=== PATIENT | male | born 1950 | race Caucasian/White ===

== ENCOUNTER 2018-02-26 13:51 | Inpatient (IN) | payer MEDICAID ==
[~2018-02-26] VITALS: Ht 182.9 cm; Wt 75.3 kg
[~2018-02-26 13:51] MED LIST: AMBIEN5 MG ORAL; COLACE100 MG ORAL; DEPAKOTE ER500 MG ORAL; DULCOLAX10 MG RC; MILK OF MA400 MG/51 ORAL; MIRALAX17 G2 ORAL; NKM; RISPERDAL2 MG ORAL; TYLENOL650 MG/20. ORAL
[2018-02-26 14:02] VITALS: BP 131/74
--- NOTE | 2018-02-26 14:33 | Emergency Room Report ---
History of Present Illness General Chief Complaint: Altered Mental Status Source: Patient, Caregiver (Rafy Mcclure MD) Source: Patient (Sheng Garcia MD) Present Illness HPI 61-year-old identified male brought to ED for evaluation. Was lying on street today. Bystanders called 911. Upon arrival patient is speaking in nonsensical terms. No signs of distress. Disheveled. Denies pain. Unable to provide any additional history at this time. Patient presents with garbage bags with his belongings. No other aggravating relieving factors. No other associated symptoms (Rafy Mcclure MD) Allergies: Coded Allergies: UNABLE TO ASSESS (Unverified , 02/26/18) altered mental status Patient History Past Medical History: none Past Surgical History: none Pertinent Family History: none Social History: Denies: smoking, alcohol use, drug use Immunizations: UTD Reviewed Nursing Documentation: PMH: Agreed; PSxH: Agreed (Rafy Mcclure MD) Nursing Documentation-PMH Past Medical History Deferred: Pt Cognitively Impaired Past Medical History: Deferred (Rafy Mcclure MD) Review of Systems All Other Systems: limited (Rafy Mcclure MD) Physical Exam Vital Signs Date Time Temp Pulse Resp B/P (MAP) Pulse Ox O2 Delivery O2 Flow Rate FiO2 02/26/18 13:43 98.9 80 18 119/51 98 Room Air 99.0 Sp02 EP Interpretation: reviewed, normal General Appearance: no apparent distress, GCS 15, non-toxic, other - nonverbal Head: normocephalic Eyes: bilateral eye normal inspection, bilateral eye PERRL ENT: normal ENT inspection Neck: normal inspection Respiratory: chest non-tender, lungs clear, normal breath sounds, speaking full sentences Cardiovascular #1: regular rate, rhythm, no edema Gastrointestinal: normal bowel sounds, non tender, soft, non-distended, no guarding, no rebound Rectal: deferred Genitourinary: no CVA tenderness Musculoskeletal: normal inspection Neurologic: other - nonverbal Psychiatric: normal inspection Skin: normal inspection Lymphatic: normal inspection (Rafy Mcclure MD) Medical Decision Making Diagnostic Impression: Primary Impression: Encephalopathy acute Additional Impressions: Acute prerenal azotemia Cough in adult ER Course This patient was signed out to me. He was found naked lying in the street. He was confused and required sedation. Labs initially was unremarkable. CT scan was negative. Chest x-ray unremarkable. He was signed out to me for clinical sobriety. Initially unable to get a urine sample because he has severe phimosis. He also pulled out his condom catheter. Patient has been sleeping through the night. Occasionally I will going to see how he is doing. His mental status seemed to be improving. He does have a hacking cough but oxidation was normal. I looked through his belongings. Is neatly packed into bags area however there was no ID. Eventually patient was able to mumble his name and date of to me. He still appeared to be very weak and lethargic. Patient had to be held down for me to put an IV in attempt of catheter. He was not cooperative for me to do an LP. I will cover with antibiotics. Because he's not back to been alert and oriented and comprehensible, I will repeat labs and chest x-ray. I ordered IV fluids and antibiotics. Will admit patient for further workup and monitoring. He may need prison placement. Patient will be admitted to Dr. Orr. (Sheng Garcia MD) EKG Diagnostic Results Rate: normal Rhythm: NSR ST Segments: no acute changes ASA given to the pt in ED: No (Rafy Mcclure MD) Rhythm Strip Diag. Results EP Interpretation: yes Rhythm: NSR, no PVC's, no ectopy (Rafy Mcclure MD) Last Vital Signs Date Time Temp Pulse Resp B/P (MAP) Pulse Ox O2 Delivery O2 Flow Rate FiO2 02/26/18 14:02 99.0 92 18 131/74 99 Room Air 99.0 (Rafy Mcclure MD) Status: unchanged (Sheng Garcia MD) Disposition: ADMITTED INPATIENT Condition: Serious Rafy Mcclure MD Feb 26, 2018 14:33 Sheng Garcia MD Feb 27, 2018 05:53
[2018-02-26 14:36] LABS: HEMATOCRIT 34.5 % (42.0-52.0); HEMOGLOBIN 10.4 G/DL (14.2-18.0); MEAN CORPUSCULAR VOLUME 66 FL (80-99); PLATELET COUNT 222 K/UL (150-450); RED BLOOD COUNT 5.21 M/UL (4.70-6.10); RED CELL DISTRIBUTION WIDTH 13.3 % (11.6-14.8); WHITE BLOOD COUNT 7.9 K/UL (4.8-10.8)
[2018-02-26 14:45] LABS: ANION GAP 12 mmol/L (5-15); BLOOD UREA NITROGEN 23 mg/dL (7-18); CARBON DIOXIDE 25 MMOL/L (21-32); CHLORIDE 107 MMOL/L (98-107); SODIUM 144 MMOL/L (136-145)
[2018-02-26 14:55] LABS: ALANINE AMINOTRANSFERASE 24 U/L (12-78); ALBUMIN 3.4 G/DL (3.4-5.0); ALBUMIN/GLOBULIN RATIO 0.7 (1.0-2.7); ALKALINE PHOSPHATASE 72 U/L (46-116); ASPARTATE AMINO TRANSFERASE 30 U/L (15-37); BILIRUBIN,TOTAL 1.8 MG/DL (0.2-1.0)
[2018-02-26 14:58] LABS: BILIRUBIN,DIRECT 0.5 MG/DL (0.0-0.3)
[2018-02-26 16:08] VITALS: BP 133/71
[2018-02-26 18:10] VITALS: BP 139/76
[2018-02-26] MEDS ORDERED: Haloperidol 5mg/ml Inj IM ONE ×2 (19:00→19:45)
[2018-02-26] MEDS ORDERED: Haloperidol 5mg/ml Inj ONE (19:42)
[2018-02-26] MEDS ORDERED: LORazepam Inj 2mg/ml 1ml ONE (19:42)
[2018-02-26] MEDS ORDERED: LORazepam Inj 2mg/ml 1ml IM ONE (19:45)
[2018-02-26 22:00] VITALS: BP 130/72
[2018-02-27] VITALS (7 sets, daily range): BP systolic 123–143; BP diastolic 67–82
[2018-02-27] MEDS ORDERED: cefTRIAXone 2 GM in NS 55 ML IVPB ONE (06:00)
[2018-02-27 06:05] LABS: HEMATOCRIT 36.1 % (42.0-52.0); HEMOGLOBIN 10.7 G/DL (14.2-18.0); MEAN CORPUSCULAR VOLUME 67 FL (80-99); PLATELET COUNT 214 K/UL (150-450); RED BLOOD COUNT 5.38 M/UL (4.70-6.10); RED CELL DISTRIBUTION WIDTH 13.5 % (11.6-14.8)
[2018-02-27 06:11] LABS: ANION GAP 11 mmol/L (5-15); BLOOD UREA NITROGEN 24 mg/dL (7-18); CALCIUM 9.2 MG/DL (8.5-10.1); CARBON DIOXIDE 25 MMOL/L (21-32); CHLORIDE 107 MMOL/L (98-107); CREATININE 0.9 MG/DL (0.55-1.30); POTASSIUM 4.3 MMOL/L (3.5-5.1); SODIUM 143 MMOL/L (136-145)
--- NOTE | 2018-02-27 08:33 | History & Physical ---
History and Physical History & Physicial 61-year-old identified male brought in after he was found lying on street today. Bystanders called 911. No signs of distress. Disheveled. No other associated symptoms admitted due to ETOH and ALOC Allergies/MEDS: none noted Past Medical History: none known Past Surgical History: none known Pertinent Family History: none Social History: homeless Physical WDWN NAD clear breath sounds bilaterally without rhonchi or wheeze [id number] without MRG NABS nontender no HSM no CCE nonfocal disheveled and confused IMPRESSION acute encephalopathy ?ETOH homeless PLAN diet monitor LOC PT eval case management Sawyer Orr MD Feb 27, 2018 08:33
--- NOTE | 2018-02-27 10:10 | Diagnostic Imaging Report ---
Indication: Headache Technique: Contiguous 5 mm thick transaxial imaging of the head obtained in a Siemens Sensation [address] scanner. Soft tissue and bone windows generated. Automatic Exposure Control was utilized. Total Dose length Product (DLP): 1383.[address] Dose Index Volume (CTDIvol): 70.38 mGy Comparison: none Findings: There is moderate prominence of the ventricles, basal cisterns, and cerebral sulci consistent with atrophy. Moderate, nonspecific, white matter hypoattenuation is noted throughout the brain consistent with chronic small vessel disease. There is no midline shift, edema, acute hemorrhage, mass effect, or abnormal extra-axial fluid collections. Bones and extra osseous soft tissues are unremarkable. There is a prominent cisterna magna. Impression: No acute intracranial bleed, mass effect or edema. Moderate atrophy of the brain. Evidence of chronic small vessel disease involving white matter tracts. The CT scanner at [facility] is accredited by the [employer] and the scans are performed using dose optimization techniques as appropriate to a performed exam including Automatic Exposure control.
--- NOTE | 2018-02-27 10:12 | Diagnostic Imaging Report ---
Indication: Dyspnea Comparison: 02/26/2018 A single view chest radiograph was obtained. Findings: Cardiomediastinal appearance is within normal limits for age. The lungs are clear. Aorta is mildly ectatic. Pulmonary vascularity is appropriate. The diaphragmatic contour is smooth and costophrenic angles are sharp. No pleural effusions are identified. The bones are unremarkable. Impression: No acute findings
--- NOTE | 2018-02-27 11:05 | Diagnostic Imaging Report ---
Indication: Dyspnea Comparison: None A single view chest radiograph was obtained. Findings: No definite infiltrate or pulmonary vascular congestion identified. The heart is enlarged. The aorta is mildly enlarged consistent with atherosclerotic vascular disease. The bones are osteopenic. Impression: No acute disease
[2018-02-28] VITALS: BP 123/69
[2018-02-28 04:00] VITALS: BP 119/57
[2018-02-28 07:34] LABS: BASOPHILS % (AUTO) 0.5 % (0.0-2.0); EOSINOPHILS % (AUTO) 3.3 % (0.0-3.0); HEMATOCRIT 34.7 % (42.0-52.0); HEMOGLOBIN 10.3 G/DL (14.2-18.0); LYMPHOCYTES % (AUTO) 15.3 % (20.0-45.0); MEAN CORPUSCULAR VOLUME 67 FL (80-99); MONOCYTES % (AUTO) 5.5 % (1.0-10.0); NEUTROPHILS % (AUTO) 75.4 % (45.0-75.0); PLATELET COUNT 174 K/UL (150-450); RED BLOOD COUNT 5.15 M/UL (4.70-6.10); RED CELL DISTRIBUTION WIDTH 13.7 % (11.6-14.8); WHITE BLOOD COUNT 7.4 K/UL (4.8-10.8)
--- NOTE | 2018-02-28 07:58 | Cardiology Report ---
APPROVED REPORT EKG Measurement Heart [id number] [place] [id number] Normal sinus rhythm Prolonged QT Abnormal ECG
[2018-02-28 16:00] VITALS: BP 135/61
--- NOTE | 2018-02-28 19:47 | General Progress Note ---
Assessment/Plan Assessment/Plan IMPRESSION acute encephalopathy ETOH homeless PLAN diet monitor LOC PT eval case management for dispo Subjective Allergies: Coded Allergies: No Known Allergies (Unverified , 04/08/16) UNABLE TO ASSESS (Unverified , 02/26/18) altered mental status Subjective better more alert Objective Last 24 Hour Vital Signs Date Time Temp Pulse Resp B/P (MAP) Pulse Ox O2 Delivery O2 Flow Rate FiO2 02/28/18 16:00 97.8 65 20 135/61 (85) 99 97.8 02/28/18 08:00 Room Air 02/28/18 04:00 98.1 60 20 119/57 (77) 100 98.1 02/28/18 00:00 98.4 64 20 123/69 (87) 100 98.4 02/27/18 21:00 Room Air 02/27/18 20:00 98.0 71 20 138/67 (90) 97 98.0 Intake and Output 02/27/18 02/28/18 19:00 07:00 Intake Total 2360 ml Output Total 600 ml Balance 2360 ml -600 ml Intake Oral 360 ml IV Total 2000 ml Output Urine Total 600 ml # Voids 3 1 # Bowel Movements 1 Laboratory Tests 02/28/18 06:40: White Blood Count 7.4, Red Blood Count 5.15, Hemoglobin 10.3L, Hematocrit 34.7L , Mean Corpuscular Volume 67L, Mean Corpuscular Hemoglobin 20.0L, Mean Corpuscular Hemoglobin Concent 29.8L, Red Cell Distribution Width 13.7, Platelet Count 174, Mean Platelet Volume 6.6, Neutrophils (%) (Auto) 75.4H, Lymphocytes (%) (Auto) 15.3L, Monocytes (%) (Auto) 5.5, Eosinophils (%) (Auto) 3.3H, Basophils (%) (Auto) 0.5 Height (Feet): 6 Height (Inches): 0.00 Weight (Pounds): 200 Objective WDWN NAD clear breath sounds bilaterally without rhonchi or wheeze [id number] without MRG NABS nontender no HSM no CCE nonfocal disheveled Sawyer Orr MD Feb 28, 2018 19:47
[2018-02-28 20:00] VITALS: BP 140/65
[2018-03-01] VITALS: BP 123/82
[2018-03-01 04:00] VITALS: BP 123/69
[2018-03-01 08:00] VITALS: BP 139/77
[2018-03-01 16:00] VITALS: BP 112/77
[2018-03-01 20:00] VITALS: BP 142/70
--- NOTE | 2018-03-01 22:18 | Pulmonology Progress Note ---
Assessment/Plan Assessment/Plan Assessment/Plan IMPRESSION acute encephalopathy ETOH homeless PLAN diet monitor LOC PT eval case management for dispo DC SNF Subjective Allergies: Coded Allergies: No Known Allergies (Unverified , 04/08/16) UNABLE TO ASSESS (Unverified , 02/26/18) altered mental status Subjective better more alert Objective Last 24 Hour Vital Signs Date Time Temp Pulse Resp B/P (MAP) Pulse Ox O2 Delivery O2 Flow Rate FiO2 02/28/18 16:00 97.8 65 20 135/61 (85) 99 97.8 02/28/18 08:00 Room Air 02/28/18 04:00 98.1 60 20 119/57 (77) 100 98.1 02/28/18 00:00 98.4 64 20 123/69 (87) 100 98.4 02/27/18 21:00 Room Air 02/27/18 20:00 98.0 71 20 138/67 (90) 97 98.0 Intake and Output 02/27/18 02/28/18 19:00 07:00 Intake Total 2360 ml Output Total 600 ml Balance 2360 ml -600 ml Intake Oral 360 ml IV Total 2000 ml Output Urine Total 600 ml # Voids 3 1 # Bowel Movements 1 Laboratory Tests 02/28/18 06:40: White Blood Count 7.4, Red Blood Count 5.15, Hemoglobin 10.3L, Hematocrit 34.7L , Mean Corpuscular Volume 67L, Mean Corpuscular Hemoglobin 20.0L, Mean Corpuscular Hemoglobin Concent 29.8L, Red Cell Distribution Width 13.7, Platelet Count 174, Mean Platelet Volume 6.6, Neutrophils (%) (Auto) 75.4H, Lymphocytes (%) (Auto) 15.3L, Monocytes (%) (Auto) 5.5, Eosinophils (%) (Auto) 3.3H, Basophils (%) (Auto) 0.5 Height (Feet): 6 Height (Inches): 0.00 Weight (Pounds): 200 Objective WDWN NAD clear breath sounds bilaterally without rhonchi or wheeze [id number] without MRG NABS nontender no HSM no CCE nonfocal disheveled Subjective ROS Limited/Unobtainable: No Allergies: Coded Allergies: No Known Allergies (Unverified , 04/08/16) UNABLE TO ASSESS (Unverified , 02/26/18) altered mental status Objective Last 24 Hour Vital Signs Date Time Temp Pulse Resp B/P (MAP) Pulse Ox O2 Delivery O2 Flow Rate FiO2 03/01/18 21:00 Room Air 03/01/18 20:00 97.8 73 19 142/70 (94) 95 03/01/18 16:00 97.2 59 20 112/77 (89) 97 03/01/18 09:00 Room Air 03/01/18 08:00 97.5 56 20 139/77 (97) 98 97.5 03/01/18 04:00 97.3 54 18 123/69 (87) 98 97.3 03/01/18 00:00 96.6 52 17 123/82 (96) 98 96.6 Intake and Output 02/28/18 03/01/18 19:00 07:00 Intake Total 360 ml Output Total 600 ml 200 ml Balance -240 ml -200 ml Intake Oral 360 ml Output Urine Total 600 ml 200 ml # Voids 1 Current Medications Medications (Trade) Dose Ordered Sig/Vitaly Route PRN Reason Start Time Stop Time Status Last Admin Dose Admin Clotrimazole (Lotrimin) 1 applic BID TOPIC 03/01/18 18:00 03/31/18 17:59 03/01/18 18:32 Silver Sulfadiazine (Silvadene Cream 25gm) 1 applic TWICE A DAY TOPIC 02/28/18 13:30 03/30/18 13:29 03/01/18 18:26 Leandro Lainez MD Mar 01, 2018 22:18
[2018-03-02] VITALS: BP 145/81
[2018-03-02 04:00] VITALS: BP 131/71
[2018-03-02 08:00] VITALS: BP 141/78
--- NOTE | 2018-03-02 08:02 | General Progress Note ---
Assessment/Plan Assessment/Plan IMPRESSION acute encephalopathy ETOH homeless PLAN diet monitor LOC PT eval case management for dispo Subjective Allergies: Coded Allergies: No Known Allergies (Unverified , 04/08/16) UNABLE TO ASSESS (Unverified , 02/26/18) altered mental status Subjective homeless Objective Last 24 Hour Vital Signs Date Time Temp Pulse Resp B/P (MAP) Pulse Ox O2 Delivery O2 Flow Rate FiO2 03/02/18 04:00 97.7 58 17 131/71 (91) 97 03/02/18 00:00 97.7 60 17 145/81 (102) 95 03/01/18 21:00 Room Air 03/01/18 20:00 97.8 73 19 142/70 (94) 95 03/01/18 16:00 97.2 59 20 112/77 (89) 97 03/01/18 09:00 Room Air Intake and Output 03/01/18 03/02/18 18:59 06:59 Output Total 130 ml Balance -130 ml Output Urine Total 130 ml # Voids 1 # Bowel Movements 1 Height (Feet): 6 Height (Inches): 0.00 Weight (Pounds): 166 Objective WDWN NAD clear breath sounds bilaterally without rhonchi or wheeze [id number] without MRG NABS nontender no HSM no CCE nonfocal disheveled Sawyer Orr MD Mar 02, 2018 08:02
[2018-03-02] MEDS: Thiamine 100mg tab ORAL SCH (08:12)
[2018-03-02 12:00] VITALS: BP 149/75
[2018-03-02 16:00] VITALS: BP 133/70
[2018-03-02 20:00] VITALS: BP 135/88
[2018-03-03] VITALS: BP 128/57
[2018-03-03 04:00] VITALS: BP 124/65
[2018-03-03 08:00] VITALS: BP 142/77
[2018-03-03] MEDS: Thiamine 100mg tab ORAL SCH (09:13)
[2018-03-03 12:00] VITALS: BP 124/96
[2018-03-03 16:09] VITALS: BP 125/69
[2018-03-03 20:00] VITALS: BP 132/70
--- NOTE | 2018-03-03 22:25 | Pulmonology Progress Note ---
Assessment/Plan Assessment/Plan Assessment/Plan IMPRESSION acute encephalopathy ETOH homeless PLAN diet monitor LOC PT eval case management for dispo DC SNF Subjective Allergies: Coded Allergies: No Known Allergies (Unverified , 04/08/16) UNABLE TO ASSESS (Unverified , 02/26/18) altered mental status Subjective better more alert Objective Last 24 Hour Vital Signs Date Time Temp Pulse Resp B/P (MAP) Pulse Ox O2 Delivery O2 Flow Rate FiO2 02/28/18 16:00 97.8 65 20 135/61 (85) 99 97.8 02/28/18 08:00 Room Air 02/28/18 04:00 98.1 60 20 119/57 (77) 100 98.1 02/28/18 00:00 98.4 64 20 123/69 (87) 100 98.4 02/27/18 21:00 Room Air 02/27/18 20:00 98.0 71 20 138/67 (90) 97 98.0 Intake and Output 02/27/18 02/28/18 19:00 07:00 Intake Total 2360 ml Output Total 600 ml Balance 2360 ml -600 ml Intake Oral 360 ml IV Total 2000 ml Output Urine Total 600 ml # Voids 3 1 # Bowel Movements 1 Laboratory Tests 02/28/18 06:40: White Blood Count 7.4, Red Blood Count 5.15, Hemoglobin 10.3L, Hematocrit 34.7L , Mean Corpuscular Volume 67L, Mean Corpuscular Hemoglobin 20.0L, Mean Corpuscular Hemoglobin Concent 29.8L, Red Cell Distribution Width 13.7, Platelet Count 174, Mean Platelet Volume 6.6, Neutrophils (%) (Auto) 75.4H, Lymphocytes (%) (Auto) 15.3L, Monocytes (%) (Auto) 5.5, Eosinophils (%) (Auto) 3.3H, Basophils (%) (Auto) 0.5 Height (Feet): 6 Height (Inches): 0.00 Weight (Pounds): 200 Objective WDWN NAD clear breath sounds bilaterally without rhonchi or wheeze [id number] without MRG NABS nontender no HSM no CCE nonfocal disheveled Subjective Allergies: Coded Allergies: No Known Allergies (Unverified , 04/08/16) UNABLE TO ASSESS (Unverified , 02/26/18) altered mental status Objective Last 24 Hour Vital Signs Date Time Temp Pulse Resp B/P (MAP) Pulse Ox O2 Delivery O2 Flow Rate FiO2 03/03/18 21:28 Room Air 03/03/18 20:00 97.2 66 20 132/70 (90) 97 03/03/18 16:09 96.7 61 20 125/69 (87) 100 03/03/18 12:00 96.3 63 20 124/96 (105) 97 03/03/18 09:00 Room Air 03/03/18 08:00 96.6 56 18 142/77 (98) 100 03/03/18 04:00 97.5 60 19 124/65 (84) 98 03/03/18 00:00 97.3 53 19 128/57 (80) 97 Intake and Output 03/02/18 03/03/18 19:00 07:00 Intake Total 720 ml 610 ml Output Total 650 ml 50 ml Balance 70 ml 560 ml Intake Oral 720 ml 610 ml Output Urine Total 650 ml 50 ml # Voids 5 4 # Bowel Movements 1 Current Medications Medications (Trade) Dose Ordered Sig/Vitaly Route PRN Reason Start Time Stop Time Status Last Admin Dose Admin Clotrimazole (Lotrimin) 1 applic BID TOPIC 03/01/18 18:00 03/31/18 17:59 03/03/18 17:09 Silver Sulfadiazine (Silvadene Cream 25gm) 1 applic TWICE A DAY TOPIC 02/28/18 13:30 03/30/18 13:29 03/03/18 17:09 Thiamine HCl (Vitamin B1) 100 mg DAILY ORAL 03/02/18 09:00 04/01/18 08:59 03/03/18 09:13 Leandro Lainez MD Mar 03, 2018 22:25
[2018-03-04] VITALS: BP 129/76
[2018-03-04 04:00] VITALS: BP 129/66
[2018-03-04 08:00] VITALS: BP 119/65
[2018-03-04] MEDS: Thiamine 100mg tab ORAL SCH (08:12)
[2018-03-04 12:00] VITALS: BP 128/66
[2018-03-04 16:00] VITALS: BP 105/58
--- NOTE | 2018-03-04 18:19 | Pulmonology Progress Note ---
Assessment/Plan Assessment/Plan Assessment/Plan IMPRESSION acute encephalopathy ETOH homeless PLAN diet monitor LOC PT eval case management for dispo DC SNF Subjective Allergies: Coded Allergies: No Known Allergies (Unverified , 04/08/16) UNABLE TO ASSESS (Unverified , 02/26/18) altered mental status Subjective better more alert Objective Last 24 Hour Vital Signs Date Time Temp Pulse Resp B/P (MAP) Pulse Ox O2 Delivery O2 Flow Rate FiO2 02/28/18 16:00 97.8 65 20 135/61 (85) 99 97.8 02/28/18 08:00 Room Air 02/28/18 04:00 98.1 60 20 119/57 (77) 100 98.1 02/28/18 00:00 98.4 64 20 123/69 (87) 100 98.4 02/27/18 21:00 Room Air 02/27/18 20:00 98.0 71 20 138/67 (90) 97 98.0 Intake and Output 02/27/18 02/28/18 19:00 07:00 Intake Total 2360 ml Output Total 600 ml Balance 2360 ml -600 ml Intake Oral 360 ml IV Total 2000 ml Output Urine Total 600 ml # Voids 3 1 # Bowel Movements 1 Laboratory Tests 02/28/18 06:40: White Blood Count 7.4, Red Blood Count 5.15, Hemoglobin 10.3L, Hematocrit 34.7L , Mean Corpuscular Volume 67L, Mean Corpuscular Hemoglobin 20.0L, Mean Corpuscular Hemoglobin Concent 29.8L, Red Cell Distribution Width 13.7, Platelet Count 174, Mean Platelet Volume 6.6, Neutrophils (%) (Auto) 75.4H, Lymphocytes (%) (Auto) 15.3L, Monocytes (%) (Auto) 5.5, Eosinophils (%) (Auto) 3.3H, Basophils (%) (Auto) 0.5 Height (Feet): 6 Height (Inches): 0.00 Weight (Pounds): 200 Objective WDWN NAD clear breath sounds bilaterally without rhonchi or wheeze [id number] without MRG NABS nontender no HSM no CCE nonfocal disheveled Subjective ROS Limited/Unobtainable: No Allergies: Coded Allergies: No Known Allergies (Unverified , 04/08/16) UNABLE TO ASSESS (Unverified , 02/26/18) altered mental status Objective Last 24 Hour Vital Signs Date Time Temp Pulse Resp B/P (MAP) Pulse Ox O2 Delivery O2 Flow Rate FiO2 03/04/18 16:00 98.6 77 19 105/58 (74) 95 03/04/18 12:00 97.9 55 20 128/66 (86) 95 03/04/18 09:00 Room Air 03/04/18 08:00 97.3 70 18 119/65 (83) 99 03/04/18 04:00 97.2 59 18 129/66 (87) 98 03/04/18 00:00 98.0 61 20 129/76 (93) 100 03/03/18 21:28 Room Air 03/03/18 20:00 97.2 66 20 132/70 (90) 97 Intake and Output 03/03/18 03/04/18 19:00 07:00 Intake Total 480 ml 720 ml Output Total 600 ml Balance 480 ml 120 ml Intake Oral 480 ml 720 ml Output Urine Total 600 ml # Voids 2 Current Medications Medications (Trade) Dose Ordered Sig/Vitaly Route PRN Reason Start Time Stop Time Status Last Admin Dose Admin Clotrimazole (Lotrimin) 1 applic BID TOPIC 03/01/18 18:00 03/31/18 17:59 03/04/18 17:45 Silver Sulfadiazine (Silvadene Cream 25gm) 1 applic TWICE A DAY TOPIC 02/28/18 13:30 03/30/18 13:29 03/04/18 17:45 Thiamine HCl (Vitamin B1) 100 mg DAILY ORAL 03/02/18 09:00 04/01/18 08:59 03/04/18 08:12 Leandro Lainez MD Mar 04, 2018 18:19
[2018-03-04 20:22] VITALS: BP 104/77
[2018-03-05 00:43] VITALS: BP 130/68
[2018-03-05 04:29] VITALS: BP 128/66
[2018-03-05 08:00] VITALS: BP 131/54
[2018-03-05] MEDS: Thiamine 100mg tab ORAL SCH (08:17)
[2018-03-05 12:00] VITALS: BP 118/57
[2018-03-05 16:00] VITALS: BP 120/61
--- NOTE | 2018-03-05 17:52 | Pulmonology Progress Note ---
Assessment/Plan Assessment/Plan Assessment/Plan IMPRESSION acute encephalopathy ETOH homeless PLAN diet monitor LOC PT eval case management for dispo DC SNF Subjective Allergies: Coded Allergies: No Known Allergies (Unverified , 04/08/16) UNABLE TO ASSESS (Unverified , 02/26/18) altered mental status Subjective better more alert Objective Last 24 Hour Vital Signs Date Time Temp Pulse Resp B/P (MAP) Pulse Ox O2 Delivery O2 Flow Rate FiO2 02/28/18 16:00 97.8 65 20 135/61 (85) 99 97.8 02/28/18 08:00 Room Air 02/28/18 04:00 98.1 60 20 119/57 (77) 100 98.1 02/28/18 00:00 98.4 64 20 123/69 (87) 100 98.4 02/27/18 21:00 Room Air 02/27/18 20:00 98.0 71 20 138/67 (90) 97 98.0 Intake and Output 02/27/18 02/28/18 19:00 07:00 Intake Total 2360 ml Output Total 600 ml Balance 2360 ml -600 ml Intake Oral 360 ml IV Total 2000 ml Output Urine Total 600 ml # Voids 3 1 # Bowel Movements 1 Laboratory Tests 02/28/18 06:40: White Blood Count 7.4, Red Blood Count 5.15, Hemoglobin 10.3L, Hematocrit 34.7L , Mean Corpuscular Volume 67L, Mean Corpuscular Hemoglobin 20.0L, Mean Corpuscular Hemoglobin Concent 29.8L, Red Cell Distribution Width 13.7, Platelet Count 174, Mean Platelet Volume 6.6, Neutrophils (%) (Auto) 75.4H, Lymphocytes (%) (Auto) 15.3L, Monocytes (%) (Auto) 5.5, Eosinophils (%) (Auto) 3.3H, Basophils (%) (Auto) 0.5 Height (Feet): 6 Height (Inches): 0.00 Weight (Pounds): 200 Objective WDWN NAD clear breath sounds bilaterally without rhonchi or wheeze [id number] without MRG NABS nontender no HSM no CCE nonfocal disheveled Subjective ROS Limited/Unobtainable: No Allergies: Coded Allergies: No Known Allergies (Unverified , 04/08/16) UNABLE TO ASSESS (Unverified , 02/26/18) altered mental status Objective Last 24 Hour Vital Signs Date Time Temp Pulse Resp B/P (MAP) Pulse Ox O2 Delivery O2 Flow Rate FiO2 03/05/18 16:00 97.1 72 17 120/61 (80) 96 03/05/18 12:00 97.8 51 17 118/57 (77) 96 03/05/18 09:00 Room Air 03/05/18 08:00 97.1 54 18 131/54 (79) 96 03/05/18 04:29 97.4 52 18 128/66 (86) 97 03/05/18 00:43 97.5 60 18 130/68 (88) 98 03/04/18 21:37 Room Air 03/04/18 20:22 97.5 63 19 104/77 (86) 98 Intake and Output 03/04/18 03/05/18 18:59 06:59 Intake Total 640 ml Output Total 5 ml 650 ml Balance 635 ml -650 ml Intake Oral 640 ml Output Urine Total 5 ml 650 ml Current Medications Medications (Trade) Dose Ordered Sig/Vitaly Route PRN Reason Start Time Stop Time Status Last Admin Dose Admin Clotrimazole (Lotrimin) 1 applic BID TOPIC 03/01/18 18:00 03/31/18 17:59 03/05/18 08:18 Diphenhydramine HCl (Benadryl) 25 mg HSPRN PRN ORAL Insomnia 03/04/18 21:00 04/03/18 20:59 03/04/18 21:00 Silver Sulfadiazine (Silvadene Cream 25gm) 1 applic TWICE A DAY TOPIC 02/28/18 13:30 03/30/18 13:29 03/05/18 08:18 Thiamine HCl (Vitamin B1) 100 mg DAILY ORAL 03/02/18 09:00 04/01/18 08:59 03/04/18 08:12 Leandro Lainez MD Mar 05, 2018 17:52
[2018-03-05 19:56] VITALS: BP 116/70
[2018-03-06 00:50] VITALS: BP 120/56
[2018-03-06 04:43] VITALS: BP 107/58
[2018-03-06 08:00] VITALS: BP 132/60
--- NOTE | 2018-03-06 08:36 | General Progress Note ---
Assessment/Plan Assessment/Plan IMPRESSION acute encephalopathy ETOH homeless PLAN diet placement issue case management for dispo Subjective Allergies: Coded Allergies: No Known Allergies (Unverified , 04/08/16) UNABLE TO ASSESS (Unverified , 02/26/18) altered mental status Subjective homeless Objective Last 24 Hour Vital Signs Date Time Temp Pulse Resp B/P (MAP) Pulse Ox O2 Delivery O2 Flow Rate FiO2 03/06/18 04:43 97.2 58 18 107/58 (74) 98 03/06/18 00:50 97.2 63 18 120/56 (77) 99 03/05/18 22:43 Room Air 03/05/18 19:56 96.8 65 18 116/70 (85) 96 03/05/18 16:00 97.1 72 17 120/61 (80) 96 03/05/18 12:00 97.8 51 17 118/57 (77) 96 03/05/18 09:00 Room Air Intake and Output 03/05/18 03/06/18 19:00 07:00 Intake Total 350 ml 240 ml Balance 350 ml 240 ml Intake Oral 350 ml 240 ml # Voids 4 2 Height (Feet): 6 Height (Inches): 0.00 Weight (Pounds): 166 Objective WDWN NAD clear breath sounds bilaterally without rhonchi or wheeze [id number] without MRG NABS nontender no HSM no CCE nonfocal disheveled Sawyer Orr MD Mar 06, 2018 08:36
[2018-03-06] MEDS: Thiamine 100mg tab ORAL SCH ×2 (09:00→09:48)
--- NOTE | 2018-03-07 09:40 | Discharge Summary ---
Discharge Summary Discharge Summary _ DATE OF ADMISSION: 02/26/2018 DATE OF DISCHARGE: 03/06/2018 REASON FOR ADMISSION: 68 years old male without known past medical history was brought to emergency room for evaluation due to altered mental status. Patient was found lying on the street. Patient apparently was homeless. Upon arrival patient showed no signs of apparent distress. Patient denied any pain. However, patient was unable to provide any additional history at that time . He was conversing incomprehensibly,. Patient with disheveled appearance, presented with garbage bags with his belongings. Vital signs were stable. Laboratory workup revealed no leukocytosis, anemia with hemoglobin 10.4 hematocrit 34.5. Serum alcohol, salicylates, Tylenol level negative. BUN 23, creatinine 1.0. Total bili 1.8, direct bili 0.5. LFT within normal limits. Troponin negative. EKG revealed normal sinus rhythm, no acute ischemic changes. Unable to get urine sample for toxicology screen due to severe phimosis. Patient pulled out his condom catheter. CT of the head revealed no acute intracranial bleeding ,mass effect or edema. Moderate atrophy of the brain with evidence of chronic small vessel diseasem involving white matter tracts noted. Patient admitted with diagnoses of acute encephalopathy , possible ETOH, homeless. HOSPITAL COURSE: Patient admitted. Patient initially was on intravenous fluids. Ativan was on board as needed for possible withdrawal symptoms. Patient started on thiamine. Renal parameters and electrolytes were closely monitored , nephrotoxic avoided. Hemoglobin and hematocrit remained stable, at baseline. As mental status improved , patient started to work with physical and occupational therapists. Fall precautions maintained. Patient was able to walk independently. horticultural farmworker met with the patient to discuss impending discharge. Patient did not require SNF placement at this time. Patient showed independence with activities of daily living. horticultural farmworker discussed with patient option of recuperative care at the [facility]. However patient stated , that he was not interested in placement. He preferred to go to stay at [place] with friends. Patient did not have a source of income for board and care placement. List of outpatient clinic for follow-up provided to patient . Patient was counseled on abstinence from ilicit street drugs and alcohol . Patient was stable for discharge FINAL DIAGNOSES: Acute encephalopathy Possible ETOH Homeless DISCHARGE INSTRUCTIONS: Patient was discharged . Follow up with any of outpatient clinic , provided by social work job titles . I have been assigned to dictate discharge summary for this account. I was not involved in the patient's management. Janae Song NP Mar 07, 2018 09:39
== END 2018-03-06 15:45 | disposition home or self-care (01) | DRG 52 ==
LOC: EDBD 13:51 → EMR 14:08 → 4E 19:05 → EDUNIT# 19:05 → EDBD 19:05 → EDBEDREQ 02-27 06:27 → 4E 03-05 17:36
DX: G93.40 Encephalopathy, unspecified (principal); F10.129 Alcohol abuse with intoxication, unspecified; Z59.0 Homelessness; N47.1 Phimosis
CPT/HCPCS: 36415; 70450; 71045; 80048; 80053; 80329; 82140; 82248; 82962; 85007; 85025; 87081; 93005; 96372; 99285

== ENCOUNTER 2018-10-25 11:39 | Emergency (ER) | payer SELFPAY ==
[~2018-10-25] VITALS: Ht 170.2 cm; Wt 72.6 kg
[2018-10-25 11:50] VITALS: BP 141/65
--- NOTE | 2018-10-25 11:50 | NUR ---
ED Nurse Note: pt walked in to ED due to "prostate surgery" pt appears to be unkempt with smell. per pt, "I live in my grilfriend house." pt has place to go. AAO x4. respirations even and non-labored noted. no open wound noted. denies hearing voices or seeing things. will wait for the further order.
--- NOTE | 2018-10-25 12:08 | NUR ---
ED Nurse Note: urine sample sent.
[2018-10-25 12:20] LABS: APPEARANCE,URINE SLIGHTLY CLOUDY; BILIRUBIN, URINE NEGATIVE (NEGATIVE); GLUCOSE, URINE (UA) NEGATIVE (NEGATIVE); KETONES,URINE 1+ (NEGATIVE); LEUKOCYTE ESTERASE ,URINE 3+ (NEGATIVE); NITRITE,URINE POSITIVE (NEGATIVE); PH,URINE 5 (4.5-8.0); PROTEIN,URINE 1+ (NEGATIVE); UROBILINOGEN,URINE NORMAL MG/DL (0.0-1.0)
[2018-10-25 12:21] LABS: COLOR,URINE YELLOW
[2018-10-25] MEDS: Lidocaine 1% MPF 10mg/ml 5ml INJ ONE ×2 (12:54→13:12)
[2018-10-25] MEDS: Azithromycin 250mg tab ORAL ONE ×2 (12:55→13:12)
[2018-10-25] MEDS ORDERED: Azithromycin 250mg tab ONE (13:10)
--- NOTE | 2018-10-25 13:20 | NUR ---
ED Nurse Note: pt refused food. per pt, "I have a food at my girlfriend's place." pt wearing weather appropriated clothes.
[2018-10-25] MEDS ORDERED: CIPROFLOXACIN500 M2 ORAL (13:24)
[2018-10-25 13:38] VITALS: BP 133/78
--- NOTE | 2018-10-25 13:40 | NUR ---
Homeless Discharge: Patient is being discharged from medical care. Awake, alert and oriented x3. After care instructions, including referral to community resources were given. Patient verbalized understanding of After care instructions; at this time patient does not request placement. Patient signed patient consent in the medical record for patient destination upon discharge. All medical devices such as ID band were removed. Patient ambulated out with all personal belongings with steady gait.
--- NOTE | 2018-10-25 14:18 | Emergency Room Report ---
History of Present Illness General Chief Complaint: Male Urogenital Problems Source: Patient, Medical Record Present Illness HPI Patient presents with complaints of possible bladder infection Reports that he has had some mild discomfort with urination over the past few days denies any chest pain or shortness of breath Reports that he is going to [place] soon and wanted to be examined first Patient reports that he is sexually active denies any obvious discharge Denies any fevers or chills denies any vomiting or diarrhea Was that he had some increased urination with discomfort which made him concerned for UTI Allergies: Coded Allergies: No Known Allergies (Unverified , 04/08/16) Patient History Past Medical History: see triage record Pertinent Family History: none Reviewed Nursing Documentation: PMH: Agreed; PSxH: Agreed Nursing Documentation-PMH Hx Cardiac Problems: No Hx Diabetes: Yes Hx Cancer: No Hx Gastrointestinal Problems: No Hx Neurological Problems: No Review of Systems All Other Systems: negative except mentioned in HPI Physical Exam Vital Signs Date Time Temp Pulse Resp B/P (MAP) Pulse Ox O2 Delivery O2 Flow Rate FiO2 10/25/18 11:42 98.2 81 19 141/65 (90) 96 Room Air Sp02 EP Interpretation: reviewed, normal General Appearance: no apparent distress - Mildly disheveled Head: normocephalic, atraumatic Eyes: bilateral eye PERRL, bilateral eye EOMI ENT: hearing grossly normal, normal pharynx, TMs + canals normal, uvula midline Neck: full range of motion, supple, no meningismus, no bony tend Respiratory: lungs clear, normal breath sounds, no rhonchi, no respiratory distress, no retraction, no accessory muscle use Cardiovascular #1: normal peripheral pulses, regular rate, rhythm, no edema, no gallop, no JVD, no murmur Gastrointestinal: normal bowel sounds, non tender, soft, no mass, no organomegaly, non-distended, no guarding, no hernia, no pulsatile mass, no rebound Genitourinary: no CVA tenderness, other - Uncircumcised Musculoskeletal: normal inspection Neurologic: oriented x3, responsive, wire bound box machine operator III-XII nml as tested, motor strength/ tone normal, sensory intact Psychiatric: mood/affect normal Skin: palpation normal, other - Somewhat disheveled in appearance several areas of mild skin irritation Lymphatic: normal inspection, no adenopathy Medical Decision Making Diagnostic Impression: Primary Impression: uti ER Course Multiple differentials and consideration given the patient's questionable Sexual contact and some UTI STD because in consideration patient treated accordingly On repeat evaluation appears appropriate and well and medically stable for discharge close outpatient follow-up Labs Test 10/25/18 11:36 Urine Color Yellow Urine Appearance Slightly cloudy Urine pH 5 (4.5-8.0) Urine Specific [place] 1.020 (1.005-1.035) Urine Protein 1+ (NEGATIVE) Urine Glucose (UA) Negative (NEGATIVE) Urine Ketones 1+ (NEGATIVE) Urine Blood 3+ (NEGATIVE) Urine Nitrite Positive (NEGATIVE) Urine Bilirubin Negative (NEGATIVE) Urine Urobilinogen Normal MG/DL (0.0-1.0) Urine Leukocyte Esterase 3+ (NEGATIVE) Urine RBC 5-10 /HPF (0 - 0) Urine WBC 20-30 /HPF (0 - 0) Urine Squamous Epithelial Cells Few /LPF (NONE/OCC) Urine Bacteria Moderate /HPF (NONE) Last Vital Signs Date Time Temp Pulse Resp B/P (MAP) Pulse Ox O2 Delivery O2 Flow Rate FiO2 10/25/18 13:38 98.0 80 18 133/78 99 Room Air Status: improved Disposition: HOME, SELF-CARE Condition: Improved Scripts Ciprofloxacin Hcl* (CIPROFLOXACIN HCL*) 500 Mg Tablet 500 MG ORAL Q12H, #14 TAB 0 Refills Prov: Sheila Love DO 10/25/18 Referrals: NOT CHOSEN IPA/,REFERRING (PCP) [facility] Patient Instructions: Urinary Tract Infection, Urethritis, Adult Additional Instructions: Patient is provided with the discharge instructions notified to follow up with primary doctor in the next 2-3 days otherwise return to the er with any worsening symptoms. Please note that this report is being documented using [employer] technology. This can lead to erroneous entry secondary to incorrect interpretation by the dictating instrument. Sheila Love DO Oct 25, 2018 14:18
== END 2018-10-25 13:41 | disposition home or self-care (01) ==
LOC: EMR 12:20
DX: N39.0 Urinary tract infection, site not specified (principal); E11.9 Type 2 diabetes mellitus without complications
CPT/HCPCS: 81003; 82962; 87086; 87181; 96372; 96374; 99284; J0696

== ENCOUNTER 2018-10-26 18:58 | Emergency (ER) | payer SELFPAY ==
[~2018-10-26] VITALS: Ht 172.7 cm; Wt 77.1 kg
[~2018-10-26 18:58] MED LIST changes: +CIPROFLOXACIN500 M2 ORAL
[2018-10-26 19:25] VITALS: BP 159/90
--- NOTE | 2018-10-26 19:30 | NUR ---
ED Nurse Note: Patient walked into ED asking for a prostate gland surgery. AAO x4, VSS at this time, skin is dry, warm to touch.
--- NOTE | 2018-10-26 19:48 | Emergency Room Report ---
History of Present Illness General Chief Complaint: General Complaint Source: Patient Present Illness HPI Patient presents with complaints of losing his medications Patient reports that he also lost his paperwork and did not know who to follow- up with Patient was here yesterday with reports of UTI and asking regarding prostate follow-up Patient was found to have a UTI Possible prostatitis however does not appear septic or toxic Allergies: Coded Allergies: No Known Allergies (Unverified , 04/08/16) Patient History Past Medical History: see triage record Pertinent Family History: none Reviewed Nursing Documentation: PMH: Agreed; PSxH: Agreed Nursing Documentation-PMH Past Medical History: No History, Except For Hx Cardiac Problems: No Hx Diabetes: Yes Hx Cancer: No Hx Gastrointestinal Problems: No Hx Neurological Problems: No Review of Systems All Other Systems: negative except mentioned in HPI Physical Exam Vital Signs Date Time Temp Pulse Resp B/P (MAP) Pulse Ox O2 Delivery O2 Flow Rate FiO2 10/26/18 19:12 98.2 76 18 159/90 (113) 93 Room Air Sp02 EP Interpretation: reviewed, normal General Appearance: no apparent distress Head: normocephalic, atraumatic Eyes: bilateral eye PERRL, bilateral eye EOMI ENT: hearing grossly normal, normal pharynx, TMs + canals normal, uvula midline Neck: full range of motion, supple, no meningismus, no bony tend Respiratory: lungs clear, normal breath sounds, no rhonchi, no respiratory distress, no retraction, no accessory muscle use Cardiovascular #1: normal peripheral pulses, regular rate, rhythm, no edema, no gallop, no JVD, no murmur Gastrointestinal: normal bowel sounds, non tender, soft, no mass, no organomegaly, non-distended, no guarding, no hernia, no pulsatile mass, no rebound Musculoskeletal: normal inspection Neurologic: oriented x3, responsive, neuroradiologist III-XII nml as tested, motor strength/ tone normal, sensory intact Psychiatric: mood/affect normal Skin: normal color, no rash, warm/dry, palpation normal, other - Patient appears improved regarding the disheveled appearance from yesterday Lymphatic: normal inspection, no adenopathy Medical Decision Making Diagnostic Impression: Primary Impression: UTI (urinary tract infection) ER Course Patient was provided his information from yesterday remains hemodynamically stable and appropriate for close follow-up Last Vital Signs Date Time Temp Pulse Resp B/P (MAP) Pulse Ox O2 Delivery O2 Flow Rate FiO2 10/26/18 19:12 98.2 76 18 159/90 (113 93 Room Air Status: unchanged Disposition: HOME, SELF-CARE Condition: Stable Additional Instructions: Patient is provided with the discharge instructions notified to follow up with primary doctor in the next 2-3 days otherwise return to the er with any worsening symptoms. Please note that this report is being documented using [employer] technology. This can lead to erroneous entry secondary to incorrect interpretation by the dictating instrument. Sheila Love DO Oct 26, 2018 19:48
[2018-10-26 20:00] VITALS: BP 159/90
--- NOTE | 2018-10-26 20:00 | NUR ---
ED Nurse Note: Pt cleared by health care Provider for discharge. DC instructions/prescription was given and explained to pt and verbalized understanding of teachings. All medical deviecs such as ID band removed. Pt is AAO x4, ambulatory and left with all personal belongings.
== END 2018-10-26 20:00 | disposition home or self-care (01) ==
LOC: EMR 19:30
DX: N39.0 Urinary tract infection, site not specified (principal); E11.9 Type 2 diabetes mellitus without complications
CPT/HCPCS: 99281

== ENCOUNTER 2018-10-27 07:12 | Emergency (ER) | payer SELFPAY ==
[~2018-10-27] VITALS: Ht 167.6 cm; Wt 72.6 kg
--- NOTE | 2018-10-27 07:30 | NUR ---
ED Nurse Note: Patient walked into ED stating that he is here to get prostate gland surgery. patient denies any pain. Checked with surgery Mabia, patient is not scheduled on any surgery. notified to Dr. Fonseca.
--- NOTE | 2018-10-27 07:40 | Emergency Room Report ---
History of Present Illness General Chief Complaint: General Complaint Source: Patient, Medical Record Present Illness HPI Patient is a homeless male. He has a history of schizophrenia and psychosis. He was seen yesterday for possible urinary tract infection. He states that he has surgery for his prostate scheduled for today at [facility]. He has no other complaints. Allergies: Coded Allergies: No Known Allergies (Unverified , 04/08/16) Patient History Past Medical History: other - ETOH abuse, BPH Social History: Reports: alcohol use; Denies: smoking, drug use Reviewed Nursing Documentation: PMH: Agreed; PSxH: Agreed Nursing Documentation-PMH Past Medical History: No History, Except For Hx Cardiac Problems: No Hx Diabetes: Yes Hx Cancer: No Hx Gastrointestinal Problems: No Hx Neurological Problems: No Review of Systems All Other Systems: negative except mentioned in HPI Physical Exam Vital Signs Date Time Temp Pulse Resp B/P (MAP) Pulse Ox O2 Delivery O2 Flow Rate FiO2 10/27/18 07:23 97.0 63 16 137/74 (95) 99 Room Air Sp02 EP Interpretation: reviewed, normal General Appearance: no apparent distress, alert, GCS 15, non-toxic Head: normocephalic, atraumatic Eyes: bilateral eye normal inspection ENT: hearing grossly normal, normal pharynx, no angioedema, normal voice Neck: normal inspection Respiratory: no respiratory distress, no retraction, no accessory muscle use, speaking full sentences Rectal: deferred Musculoskeletal: normal inspection, back normal, gait/station normal Neurologic: alert, oriented x3, responsive, motor strength/tone normal, sensory intact, speech normal Psychiatric: memory normal, mood/affect normal, no suicidal/homicidal ideation , other - confabulating, psychosis, grandiose. Skin: warm/dry, well hydrated Medical Decision Making Diagnostic Impression: Primary Impression: Schizophrenia ER Course This patient is homeless with a history of alcohol abuse and schizophrenia. There is some raining and drizzle outside. The patient is stating that he wants surgery for his prostate problems. He is stating that he has surgery today. However, the patient is not scheduled for surgery after checking the surgery schedule. When I educated the patient that he did have surgery today, he became very grandiose and stating that he was going [place]. This patient has a baseline psychosis. This is likely exacerbated by alcohol. Regardless, the patient knew where he was he is able to ambulate normally and was able to articulate that he had Dr. Orr and Dr. Mcmillan previously for admissions. He has no emergency medical condition at this time. He was instructed to follow-up as an outpatient if he was concerned about his prostate. The patient did not want to leave and was escorted out of the hospital by security. Last Vital Signs Date Time Temp Pulse Resp B/P (MAP) Pulse Ox O2 Delivery O2 Flow Rate FiO2 10/27/18 07:23 97.0 63 16 137/74 (95) 99 Room Air Disposition: HOME, SELF-CARE Condition: Stable Macie Fonseca DO Oct 27, 2018 07:40
[2018-10-27 07:54] VITALS: BP 131/72
[2018-10-27 07:55] VITALS: BP 137/74
== END 2018-10-27 07:34 | disposition home or self-care (01) ==
LOC: EMR 07:30
DX: F20.9 Schizophrenia, unspecified (principal); E11.9 Type 2 diabetes mellitus without complications; N40.0 Benign prostatic hyperplasia without lower urinary tract symptoms; F10.10 Alcohol abuse, uncomplicated
CPT/HCPCS: 99281